=== PATIENT | male | born 1960 | race Hispanic/Latino ===

== ENCOUNTER 2021-03-21 21:03 | Inpatient (IN) | payer MEDICAID ==
[~2021-03-21] VITALS: Ht 175.3 cm; Wt 42.9 kg
[2021-03-21] MEDS ORDERED: 0.9%NACL 1000ML 1,000 ML IV ONE (21:30)
[2021-03-21] MEDS ORDERED: TETANUS/DIPHTHERIA TOXOID [ADULT] 0.5 ML VIAL IM ONE ×2 (21:30→23:05)
[2021-03-21 22:12] LABS: BASOPHILS % (AUTO) 0.2 % (0.0-5.0); EOSINOPHILS % (AUTO) 0.1 % (0.0-8.0); HEMATOCRIT 35.5 % (42-54); LYMPHOCYTES % (AUTO) 5.1 % (21.0-51.0); MEAN CORPUSCULAR HEMOGLOBIN 32.5 pg (27.0-33.0); MEAN CORPUSCULAR HGB CONC 33.5 g/dL (32.0-36.0); MONOCYTES % (AUTO) 6.5 % (3.0-13.0); NEUTROPHILS % (AUTO) 87.2 % (40.0-77.0); PLATELET COUNT (AUTO) 229 K/uL (130-400); RED BLOOD CELL COUNT(AUTO) 3.66 MIL/uL (4.50-6.20); RED CELL DISTRIBUTION WIDTH 12.6 % (11.0-15.5); WHITE BLOOD COUNT (AUTO) 18.2 K/uL (4.8-10.8)
[2021-03-21 22:18] LABS: APPEARANCE,URINE Clear (CLEAR); BILIRUBIN,URINE Negative (NEGATIVE); COLOR,URINE Yellow (YELLOW); GLUCOSE, URINE (UA) Negative (NEGATIVE); KETONES,URINE Negative (NEGATIVE); LEUKOCYTE ESTERASE ,URINE Negative (NEGATIVE); NITRATE,URINE Negative (NEGATIVE); OCCULT BLOOD,URINE Negative (NEGATIVE); PROTEIN,URINE POS 1+ mg/dL (NEGATIVE)
[2021-03-21 22:24] LABS: AMPHET/METH SCREEN,URINE NEGATIVE (NEGATIVE); BARBITURATE SCREEN, URINE NEGATIVE (NEGATIVE); BENZODIAZEPINES SCREEN,URINE NEGATIVE (NEGATIVE); CANNABINOID SCREEN,URINE NEGATIVE (NEGATIVE); COCAINE SCREEN,URINE NEGATIVE (NEGATIVE); OPIATE SCREEN,URINE NEGATIVE (NEGATIVE); PHENCYCLIDINE SCREEN,URINE NEGATIVE (NEGATIVE)
[2021-03-21 22:25] LABS: BACTERIA,URINE Few /HPF (None Seen); MUCUS,URINE Few LPF (None Seen); SQUAMOUS EPITHELIAL CELL,UR Rare /HPF (0-2)
[2021-03-21 22:29] LABS: CARBON DIOXIDE 24 mmol/L (21-32); CHLORIDE 103 mmol/L (101-111); GLOMERULAR FILTR. RATE CALC 80 mL/min (>60); GLUCOSE,RANDOM 106 mg/dL (70-105); POTASSIUM 4.5 mmol/L (3.5-5.1); SODIUM SERUM 139 mmol/L (136-145); UREA NITROGEN, BLOOD 22 mg/dL (7-18)
[2021-03-21] MEDS ORDERED: LACTULOSE 20 GM/30 ML UDCUP PO ONE (22:30)
[2021-03-21] MEDS: GLYCERIN ADULT SUPP.RECT RC SCH (22:30)
[2021-03-21 22:33] LABS: ALANINE AMINOTRANSFERASE 18 U/L (12-78); ALBUMIN 3.8 g/dL (3.5-5.0); ASPARTATE AMINOTRANSFERASE 19 U/L (10-37); BILIRUBIN,TOTAL 0.3 mg/dL (0.2-1.0); CREATINE KINASE, TOTAL 232 U/L (21-232); TOTAL PROTEIN, SERUM 7.8 g/dL (6.0-8.3)
[2021-03-21 22:35] LABS: CRP QUANTITATIVE < 2.00 mg/L (0.00-9.0)
[2021-03-21] MEDS ORDERED: CEFTRIAXONE 1G VIAL IVP ONE (23:00)
[2021-03-22] MEDS ORDERED: HYDRALAZINE 20MG/ML VIAL IV PRN (00:30)
[2021-03-22] MEDS ORDERED: ONDANSETRON 4MG INJ IV PRN (00:30)
[2021-03-22] MEDS ORDERED: NITROGLYCERIN 0.4 MG SL TAB SL PRN (00:30)
[2021-03-22] MEDS ORDERED: ACETAMINOPHEN 325 MG TAB PO PRN ×2 (00:30)
[2021-03-22] MEDS ORDERED: GLUCAGON 1MG KIT 1 MG ML IM PRN (00:30)
[2021-03-22] MEDS ORDERED: DEXTROSE 50%-WATER 50 ML DISP.SYRIN IV PRN (00:30)
[2021-03-22] MEDS: ZOSYN 3.375GM +NS 50ML IV SCH ×3 (03:03→21:05)
[2021-03-22 03:40] VITALS: BP 144/81
[2021-03-22] MEDS: INSULIN HUMULIN R 100 UNIT/ML 3ML SQ SCH ×4 (05:58→21:00)
[2021-03-22 06:00] LABS: BASOPHILS % (AUTO) 0.2 % (0.0-5.0); EOSINOPHILS % (AUTO) 0.1 % (0.0-8.0); HEMATOCRIT 34.3 % (42-54); LYMPHOCYTES % (AUTO) 12.4 % (21.0-51.0); MEAN CORPUSCULAR HEMOGLOBIN 32.6 pg (27.0-33.0); MEAN CORPUSCULAR HGB CONC 33.8 g/dL (32.0-36.0); MEAN CORPUSCULAR VOLUME 96.3 fL (79-99); MONOCYTES % (AUTO) 7.6 % (3.0-13.0); NEUTROPHILS % (AUTO) 79.4 % (40.0-77.0); PLATELET COUNT (AUTO) 227 K/uL (130-400); RED BLOOD CELL COUNT(AUTO) 3.56 MIL/uL (4.50-6.20); RED CELL DISTRIBUTION WIDTH 12.7 % (11.0-15.5); WHITE BLOOD COUNT (AUTO) 9.6 K/uL (4.8-10.8)
[2021-03-22 06:14] LABS: HEMOGLOBIN A1C 5.9 % (4.0-6.0)
[2021-03-22 06:40] LABS: ALBUMIN 3.3 g/dL (3.5-5.0); BILIRUBIN,TOTAL 0.4 mg/dL (0.2-1.0); CREATININE 1.1 mg/dL (0.5-1.5); POTASSIUM 3.9 mmol/L (3.5-5.1); THYROID STIMULATING HORMONE 1.1 uIU/mL (0.36-3.74); TOTAL PROTEIN, SERUM 6.9 g/dL (6.0-8.3)
[2021-03-22] MEDS: ASPIRIN 325MG TAB PO SCH (06:47)
[2021-03-22 08:01] VITALS: BP 137/77
[2021-03-22] MEDS ORDERED: FAMOTIDINE 20MG VIAL IV SCH (09:00)
[2021-03-22 11:14] VITALS: BP 112/66
[2021-03-22 16:04] VITALS: BP 110/66
[2021-03-22 20:27] VITALS: BP 126/65
[2021-03-22] MEDS: ENOXAPARIN SODIUM 60 MG/0.6 ML SQ SCH ×2 (21:00→21:16)
[2021-03-22] MEDS: ATORVASTATIN 40 MG TABLET PO SCH (21:06)
[2021-03-22] MEDS: METOPROLOL TARTRATE 25 MG TAB PO SCH (21:06)
[2021-03-22] MEDS: GLYCERIN ADULT SUPP.RECT RC SCH (21:25)
[2021-03-22 23:49] VITALS: BP 125/61
[2021-03-23 03:28] VITALS: BP 153/77
[2021-03-23] MEDS: ZOSYN 3.375GM +NS 50ML IV SCH ×3 (03:51→20:31)
[2021-03-23 04:02] LABS: BASOPHILS % (AUTO) 0.3 % (0.0-5.0); EOSINOPHILS % (AUTO) 0.5 % (0.0-8.0); LYMPHOCYTES % (AUTO) 29.2 % (21.0-51.0); MEAN CORPUSCULAR HEMOGLOBIN 31.8 pg (27.0-33.0); MEAN CORPUSCULAR HGB CONC 33.7 g/dL (32.0-36.0); MEAN CORPUSCULAR VOLUME 94.5 fL (79-99); MONOCYTES % (AUTO) 10.6 % (3.0-13.0); NEUTROPHILS % (AUTO) 59.1 % (40.0-77.0); PLATELET COUNT (AUTO) 257 K/uL (130-400); RED BLOOD CELL COUNT(AUTO) 4.02 MIL/uL (4.50-6.20); RED CELL DISTRIBUTION WIDTH 12.8 % (11.0-15.5); WHITE BLOOD COUNT (AUTO) 8.7 K/uL (4.8-10.8)
[2021-03-23 05:25] LABS: ALBUMIN 3.5 g/dL (3.5-5.0); BILIRUBIN,TOTAL 0.5 mg/dL (0.2-1.0); CREATININE 0.9 mg/dL (0.5-1.5); POTASSIUM 4.6 mmol/L (3.5-5.1); TOTAL PROTEIN, SERUM 7.8 g/dL (6.0-8.3)
[2021-03-23] MEDS: ASPIRIN 325MG TAB PO SCH (06:47)
[2021-03-23] MEDS: INSULIN HUMULIN R 100 UNIT/ML 3ML SQ SCH ×4 (07:30→20:32)
[2021-03-23] MEDS: ENOXAPARIN SODIUM 60 MG/0.6 ML SQ SCH ×2 (08:00→20:33)
[2021-03-23] MEDS: FAMOTIDINE 20MG TAB PO SCH (08:00)
[2021-03-23] MEDS: METOPROLOL TARTRATE 25 MG TAB PO SCH ×2 (08:02→20:31)
[2021-03-23 08:05] VITALS: BP 118/70
[2021-03-23 10:57] VITALS: BP 116/76
[2021-03-23 16:00] VITALS: BP 118/76
[2021-03-23 19:11] VITALS: BP 137/71
[2021-03-23] MEDS: ATORVASTATIN 40 MG TABLET PO SCH (20:31)
[2021-03-23] MEDS: GLYCERIN ADULT SUPP.RECT RC SCH (22:30)
[2021-03-23 23:39] VITALS: BP 104/50
[2021-03-24] MEDS: ZOSYN 3.375GM +NS 50ML IV SCH ×3 (03:15→20:54)
[2021-03-24 03:19] VITALS: BP 132/58
[2021-03-24 04:15] LABS: BASOPHILS % (AUTO) 0.3 % (0.0-5.0); EOSINOPHILS % (AUTO) 0.9 % (0.0-8.0); HEMATOCRIT 38.4 % (42-54); LYMPHOCYTES % (AUTO) 37.8 % (21.0-51.0); MEAN CORPUSCULAR HEMOGLOBIN 31.7 pg (27.0-33.0); MEAN CORPUSCULAR HGB CONC 33.3 g/dL (32.0-36.0); MONOCYTES % (AUTO) 11.1 % (3.0-13.0); NEUTROPHILS % (AUTO) 49.5 % (40.0-77.0); PLATELET COUNT (AUTO) 269 K/uL (130-400); RED BLOOD CELL COUNT(AUTO) 4.04 MIL/uL (4.50-6.20); RED CELL DISTRIBUTION WIDTH 12.9 % (11.0-15.5); WHITE BLOOD COUNT (AUTO) 7.8 K/uL (4.8-10.8)
[2021-03-24 04:29] LABS: ALBUMIN 3.3 g/dL (3.5-5.0); BILIRUBIN,TOTAL 0.3 mg/dL (0.2-1.0); CREATININE 0.8 mg/dL (0.5-1.5); POTASSIUM 4.7 mmol/L (3.5-5.1); TOTAL PROTEIN, SERUM 7.4 g/dL (6.0-8.3)
[2021-03-24] MEDS: INSULIN HUMULIN R 100 UNIT/ML 3ML SQ SCH ×4 (06:16→20:05)
[2021-03-24 08:06] VITALS: BP 135/74
[2021-03-24] MEDS: METOPROLOL TARTRATE 25 MG TAB PO SCH ×2 (09:02→20:52)
[2021-03-24] MEDS: FAMOTIDINE 20MG TAB PO SCH (09:02)
[2021-03-24] MEDS: ENOXAPARIN SODIUM 60 MG/0.6 ML SQ SCH ×2 (09:03→20:52)
[2021-03-24 11:22] VITALS: BP 106/62
[2021-03-24 16:19] VITALS: BP 114/73
[2021-03-24 20:09] VITALS: BP 140/76
[2021-03-24] MEDS: ATORVASTATIN 40 MG TABLET PO SCH (20:52)
[2021-03-24 23:34] VITALS: BP 121/60
[2021-03-25 03:52] LABS: BASOPHILS % (AUTO) 0.4 % (0.0-5.0); EOSINOPHILS % (AUTO) 0.6 % (0.0-8.0); HEMATOCRIT 38.1 % (42-54); LYMPHOCYTES % (AUTO) 32.6 % (21.0-51.0); NEUTROPHILS % (AUTO) 55.9 % (40.0-77.0); PLATELET COUNT (AUTO) 270 K/uL (130-400); RED BLOOD CELL COUNT(AUTO) 3.81 MIL/uL (4.50-6.20); WHITE BLOOD COUNT (AUTO) 8.1 K/uL (4.8-10.8)
[2021-03-25 04:15] LABS: ALBUMIN 3.4 g/dL (3.5-5.0); BILIRUBIN,TOTAL 0.2 mg/dL (0.2-1.0); CREATININE 0.8 mg/dL (0.5-1.5); POTASSIUM 4.3 mmol/L (3.5-5.1); TOTAL PROTEIN, SERUM 7.5 g/dL (6.0-8.3)
[2021-03-25 04:29] VITALS: BP 141/71
[2021-03-25] MEDS: INSULIN HUMULIN R 100 UNIT/ML 3ML SQ SCH ×4 (05:18→20:36)
[2021-03-25] MEDS: ZOSYN 3.375GM +NS 50ML IV SCH ×3 (05:19→20:07)
[2021-03-25 07:30] VITALS: BP 142/62
[2021-03-25] MEDS: METOPROLOL TARTRATE 25 MG TAB PO SCH ×2 (08:31→20:07)
[2021-03-25] MEDS: FAMOTIDINE 20MG TAB PO SCH (08:31)
[2021-03-25] MEDS: ENOXAPARIN SODIUM 60 MG/0.6 ML SQ SCH ×2 (08:32→20:08)
[2021-03-25 11:00] VITALS: BP 140/79
[2021-03-25 16:00] VITALS: BP 141/63
[2021-03-25] MEDS: ATORVASTATIN 40 MG TABLET PO SCH (20:07)
[2021-03-25 21:09] VITALS: BP 146/74
[2021-03-26 00:05] VITALS: BP 125/56
[2021-03-26] MEDS: ZOSYN 3.375GM +NS 50ML IV SCH ×2 (03:56→15:17)
[2021-03-26 04:09] VITALS: BP 131/76
[2021-03-26] MEDS: INSULIN HUMULIN R 100 UNIT/ML 3ML SQ SCH ×3 (06:30→16:30)
[2021-03-26 07:30] VITALS: BP 118/83
[2021-03-26] MEDS: METOPROLOL TARTRATE 25 MG TAB PO SCH (08:53)
[2021-03-26] MEDS: FAMOTIDINE 20MG TAB PO SCH (08:53)
[2021-03-26] MEDS: ENOXAPARIN SODIUM 60 MG/0.6 ML SQ SCH (08:55)
[2021-03-26] MEDS ORDERED: LISINOPRIL 5 MG TABLET PO SCH (09:00)
[2021-03-26] MEDS ORDERED: ASPIRIN 81MG CHEW TAB PO SCH (09:00)
[2021-03-26 11:00] VITALS: BP 136/59
[2021-03-26 16:00] VITALS: BP 96/51
[2021-03-26] MEDS ORDERED: ATOR40TA69 PO (18:01)
[2021-03-26] MEDS ORDERED: METO25 PO (18:01)
[2021-03-26] MEDS ORDERED: LISI5TAB21 PO (18:01)
[2021-03-26] MEDS ORDERED: ASPI-1005 PO (18:01)
== END 2021-03-26 19:00 | disposition home or self-care (01) | DRG 52 ==
LOC: EDH 21:03 → EDBD 21:03 → EDHIP 21:04 → OBSVTOIN 21:04 → 4BH 03-22 02:59 → 4AH 03-22 03:31
PROVIDERS: ADMIT Internal Medicine Critical Care Medicine; ATTEND Internal Medicine Critical Care Medicine
DX: G93.41 Metabolic encephalopathy (principal); I21.A1 Myocardial infarction type 2; R65.10 Systemic inflammatory response syndrome (SIRS) of non-infectious origin without acute organ dysfunction; E44.0 Moderate protein-calorie malnutrition; I69.354 Hemiplegia and hemiparesis following cerebral infarction affecting left non-dominant side; D64.9 Anemia, unspecified; S50.312A Abrasion of left elbow, initial encounter; S70.02XA Contusion of left hip, initial encounter; D72.819 Decreased white blood cell count, unspecified; R41.82 Altered mental status, unspecified; E78.5 Hyperlipidemia, unspecified; R68.0 Hypothermia, not associated with low environmental temperature; E86.0 Dehydration; I10 Essential (primary) hypertension; I25.10 Atherosclerotic heart disease of native coronary artery without angina pectoris; F17.210 Nicotine dependence, cigarettes, uncomplicated; I25.5 Ischemic cardiomyopathy; Y93.89 Activity, other specified; Y92.89 Other specified places as the place of occurrence of the external cause; Y99.8 Other external cause status; Z68.1 Body mass index [BMI] 19.9 or less, adult; I25.2 Old myocardial infarction; Z95.1 Presence of aortocoronary bypass graft; Z63.8 Other specified problems related to primary support group; Z79.82 Long term (current) use of aspirin; Z79.899 Other long term (current) drug therapy
CPT/HCPCS: 36415; 70450; 71045; 73070; 73502; 80053; 80061; 80305; 81001; 82140; 82270; 82550; 82948; 83036; 83605; 83880; 84145; 84443; 84484; 85025; 86140; 87040; 90714; 93005; 93306; 93356; 97039; G0378; J0696; J1650; J2543; J3490